=== PATIENT | female | born 1965 | race Caucasian/White ===

== ENCOUNTER 2019-06-27 12:54 | Outpatient (CLI) | payer BC, SELFPAY ==
--- NOTE | ~2019-06-27 | MMUS_ITS ---
EXAMINATION: MM diagnostic sukhdeep BI w gary, US breast LT limited HISTORY: Left breast cancer status post lumpectomy and radiation therapy. Thickening noted in the lef t breast by patient. TECHNIQUE: Additional 3-D tomosynthesis images of the left breast were performed and synthetic 2-D im ages were generated. CAD analysis was submitted and interpreted. High resolution left breast ultrasou nd was performed. COMPARISON: Comparison to multiple prior studies sequentially, with oldest reviewed study dated 09/20. FINDINGS: MAMMOGRAPHIC FINDINGS: Breast composed of scattered areas of fibroglandular density. The breasts are stable. No significant change to postsurgical appearance upper outer quadrant of the left breast. No new masses, calcificati ons or architectural distortion are identified. Skin thickening is unchanged. Right breast is stable without evidence for malignancy. ULTRASOUND: At 3:00, 4 cm from the nipple in the area of palpable concern there is heterogeneous soft tissue with out discrete mass or there are areas of shadowing, likely representing scar formation. No discrete so lid or cystic masses. IMPRESSION: 1. Postoperative change of the left breast. No evidence for malignancy in either breast. 2. Routine yearly screening mammogram and regular clinical breast examination are recommended. BI-RADS Category 2: Benign finding(s). Reviewed, dictated and finalized at location A. IMPRESSION: 1. Postoperative change of the left breast. No evidence for malignancy in eithe r breast. 2. Routine yearly screening mammogram and regular clinical breast examination a re recommended. BI-RADS Category 2: Benign finding(s).
== END 2019-06-27 12:55 | disposition home or self-care (01) ==
LOC: ANHIMG 12:56
PROVIDERS: Visit Provider Obstetrics & Gynecology
DX: C50.912 Malignant neoplasm of unspecified site of left female breast (principal)
CPT/HCPCS: 76642; 77062; 77066; G0279

== ENCOUNTER 2020-05-19 13:31 | Outpatient (CLI) | payer BC, SELFPAY ==
--- NOTE | ~2020-05-19 | MM_ITS ---
EXAMINATION: MM screening sukhdeep BI w gary HISTORY: Screening mammogram, history of left breast cancer TECHNIQUE: Craniocaudal and mediolateral oblique 3-D tomosynthesis images were obtained and synthetic 2-D images were generated. CAD analysis was submitted and interpreted. COMPARISON: 06/27/2019, 12/10/2018, 09/20/2017 BREAST PARENCHYMAL COMPOSITION: There are scattered areas of fibroglandular density. FINDINGS: RIGHT BREAST: There is a possible mass in the posterior third of the upper inner breast best apprecia jony 5 cm from the nipple on craniocaudal tomosynthesis image 35/54 and mediolateral oblique tomosynth esis image 41/57. LEFT BREAST: Stable lumpectomy changes are noted in the breast. There is no evidence of suspicious ma ss, calcification, or architectural distortion to suggest malignancy. There has been no significant i nterval change. IMPRESSION: 1. Possible right breast mass. 2. Additional mammographic views and possible breast ultrasound are recommended. BI-RADS Category 0: Incomplete: Needs additional imaging evaluation. Reviewed, dictated and finalized at location A. EKEEPER IMPRESSION: 1. Possible right breast mass. 2. Additional mammographic views and possible breast ultrasound are recommended . BI-RADS Category 0: Incomplete: Needs additional imaging evaluation.
== END 2020-05-19 13:32 | disposition home or self-care (01) ==
LOC: ANHIMG 13:35
PROVIDERS: PCP Obstetrics & Gynecology; Visit Provider Obstetrics & Gynecology
DX: Z12.31 Encounter for screening mammogram for malignant neoplasm of breast (principal); R92.8 Other abnormal and inconclusive findings on diagnostic imaging of breast
CPT/HCPCS: 77063; 77067

== ENCOUNTER 2020-09-13 13:45 | Outpatient (CLI) | payer BC, SELFPAY ==
--- NOTE | ~2020-09-13 | MMUS_ITS ---
EXAMINATION: MM diagnostic sukhdeep RT w gary, US breast RT complete HISTORY: Possible mass reported in upper inner right breast on 05/19/2020 screening mammogram TECHNIQUE: Additional full field and spot 3-D tomosynthesis images of the right breast were performed and synthetic 2-D images were generated. CAD analysis was submitted and interpreted. High resolution complete right breast ultrasound was performed. COMPARISON: 05/19/2020 bilateral digital screening mammogram BREAST PARENCHYMAL COMPOSITION: There are scattered areas of fibroglandular density. FINDINGS: MAMMOGRAPHIC FINDINGS: No suspicious reproducible mass is evident. There are scattered occasional benign calcifications. No architectural distortion, skin thickening or retraction. ULTRASOUND: There is no evidence of focal abnormal solid or cystic lesion or abnormal shadowing of the right [address]. IMPRESSION: 1. No mammographic evidence of malignancy 2. Routine mammographic screening is recommended. BI-RADS Category 2: Benign finding(s). Reviewed, dictated and finalized at location A. IMPRESSION: 1. No mammographic evidence of malignancy 2. Routine mammographic screening is recommended. BI-RADS Category 2: Benign finding(s).
== END 2020-09-13 13:46 | disposition home or self-care (01) ==
PROVIDERS: PCP Obstetrics & Gynecology; Visit Provider Obstetrics & Gynecology
DX: R92.8 Other abnormal and inconclusive findings on diagnostic imaging of breast (principal); N63.10 Unspecified lump in the right breast, unspecified quadrant
CPT/HCPCS: 76641; 77061; 77065; G0279

== ENCOUNTER 2021-10-03 12:42 | Outpatient (CLI) | payer BC, SELFPAY ==
--- NOTE | ~2021-10-03 | MMUS_ITS ---
EXAMINATION: MM diagnostic sukhdeep BI w gary, US breast LT limited HISTORY: History of left breast cancer status post lumpectomy with chemotherapy and radiation therapy . Left skin thickening. TECHNIQUE: Additional 3-D tomosynthesis images of the breasts were performed and synthetic 2-D images were generated. CAD analysis was submitted and interpreted. High resolution Limited left breast ultr asound was performed. COMPARISON: Comparison to multiple prior studies sequentially, with oldest reviewed study dated 06/2018. BREAST PARENCHYMAL COMPOSITION: Breast composed of scattered areas of fibroglandular density. FINDINGS: MAMMOGRAPHIC FINDINGS: The breasts are stable. Architectural distortion and postsurgical changes are present in the left jayro ast which are stable. No new masses, calcifications or architectural distortion in either breast to s uggest malignancy. There is skin thickening of the left breast which is unchanged from prior examinat ions. ULTRASOUND: Limited left breast ultrasound: Normal heterogeneous echotexture is identified in the area of palpabl e concern. No discrete mass identified. IMPRESSION: 1. No evidence for malignancy in either breast. 2. Routine yearly screening mammogram and regular clinical breast examination are recommended. Recomm end follow-up clinical management for skin thickening. BI-RADS Category 2: Benign finding(s). Reviewed, dictated and finalized at location A. IMPRESSION: 1. No evidence for malignancy in either breast. 2. Routine yearly screening mammogram and regular clinical breast examination a re recommended. Recommend follow-up clinical management for skin thickening. BI-RADS Category 2: Benign finding(s).
== END 2021-10-03 12:43 | disposition home or self-care (01) ==
LOC: ANHIMG 12:44
PROVIDERS: PCP Physician Assistant; Visit Provider Physician Assistant
DX: Z12.31 Encounter for screening mammogram for malignant neoplasm of breast (principal); C50.512 Malignant neoplasm of lower-outer quadrant of left female breast
CPT/HCPCS: 76642; 77062; 77066; G0279

== ENCOUNTER 2023-05-23 10:38 | Outpatient (CLI) | payer BC, SELFPAY ==
--- NOTE | ~2023-05-23 | MM_ITS ---
EXAMINATION: MM diagnostic sukhdeep BI w gary HISTORY: History of left breast cancer with possible palpable change at the lumpectomy site TECHNIQUE: Craniocaudal, mediolateral, and mediolateral oblique 3-D tomosynthesis images of the breas ts were performed and synthetic 2-D images were generated. CAD analysis was submitted and interpreted . COMPARISON: 10/03/2021, 09/13/2020, 05/19/2020, 06/27/2019, 12/27/2018 BREAST PARENCHYMAL COMPOSITION: There are scattered areas of fibroglandular density. FINDINGS: There are stable lumpectomy changes in the upper outer quadrant of the left breast. There h as been no suspicious interval change. No suspicious mass, calcification, or architectural distortion are identified in either breast to suggest malignancy. IMPRESSION: 1. No specific mammographic correlate is identified for the reported palpable change of the left [address]. Further evaluation at this time should be based on clinical assessment. Continued follow-up physi chino examination is recommended. 2. Recommend routine screening mammography in one year. BI-RADS Category 2: Benign finding(s). Reviewed, dictated and finalized at location A. BUILDER IMPRESSION: 1. No specific mammographic correlate is identified for the reported palpable c hange of the left breast. Further evaluation at this time should be based on cl inical assessment. Continued follow-up physical examination is recommended. 2. Recommend routine screening mammography in one year. BI-RADS Category 2: Benign finding(s).
== END 2023-05-23 10:39 | disposition home or self-care (01) ==
LOC: ANHIMG 10:42
PROVIDERS: PCP Physician Assistant; Visit Provider Physician Assistant
DX: Z12.31 Encounter for screening mammogram for malignant neoplasm of breast (principal); Z85.3 Personal history of malignant neoplasm of breast
CPT/HCPCS: 77062; 77066; G0279